=== PATIENT | female | born 1940 | race Caucasian/White ===

== ENCOUNTER 2022-11-07 16:54 | Inpatient (IN) ==
[2022-11-07 17:34] LABS: ABS Lymphocytes 0.5 10^3/uL (1.0-4.8); ABS Monocytes 1.2 10^3/uL (0.0-0.9); ABS Neutrophils 19.7 10^3/uL (1.5-7.6); Eosinophil % 0.2 %; Hematocrit 40.3 % (35-45); Hemoglobin 13.1 g/dL (11.5-14.3); Lymphocyte % 2.5 %; Mean Corpuscular Hemoglobin 27.7 pg (27-33); Mean Corpuscular Hgb Conc 32.5 g/dL (31-36); Mean Corpuscular Volume 85.3 fL (80-97); Platelet Count 200 10^3/uL (150-450); Red Blood Count 4.72 10^6/uL (3.63-4.92); Red Cell Distribution Width 14.4 % (12-17); White Blood Count 21.5 10^3/uL (3.8-11.8)
[2022-11-07 17:40] LABS: INR 3.85 (0.88-1.18)
[2022-11-07 17:51] LABS: Albumin 3.9 g/dL (3.2-5.2); Albumin/Globulin Ratio 1.3 (1-3); Calcium 9.2 mg/dL (8.6-10.3); Creatinine, Serum 1.16 mg/dL (0.51-0.95); Potassium 4.9 mmol/L (3.5-5.0); Total Bilirubin 0.9 mg/dL (0.2-1.0); Total Protein 6.9 g/dL (6.4-8.9); eGFR CKD-EPI 47.4 (>60)
[2022-11-07] MEDS ORDERED: cefTRIAXone 1 gm/50 mL D5W 1 GM/50 ML BAG IV ONE (18:33)
[2022-11-07] MEDS ORDERED: Azithromycin 500 mg/250 ml NS 500 MG/250 ML BAG IVPB ONE (18:33)
[2022-11-07] MEDS ORDERED: Dexamethasone IV 4 MG/ML VIAL 1 ml VIAL IV SLOW PU ONE (18:35)
[2022-11-07 19:08] LABS: Urine Appearance Cloudy; Urine Bilirubin Negative (Negative); Urine Blood 2+ (Negative); Urine Color Yellow; Urine Glucose Negative (Negative); Urine Ketones Negative (Negative); Urine Nitrite Negative (Negative); Urine Protein 1+(30 mg/dL) (Negative); Urine Specific Gravity 1.019 (1.002-1.030); Urine Urobilinogen Negative (Negative)
[2022-11-07 19:13] LABS: Urine Bacteria 1+ (Absent); Urine Red Blood Cell 3+(>10/hpf) (Absent); Urine Squamous Epithelial Cell Present (Absent); Urine White Blood Cell 3+(>20/hpf) (Absent)
[2022-11-07] MEDS: Albuterol/Ipratropium NEB.SOL (2.5/0.5 MG) 3 ML NEB.SOLN INH SCH ×3 (19:15→20:19)
[2022-11-07 19:24] LABS: High Sensitivity Troponin 1 Hr 7 pg/mL (<15)
[2022-11-07 19:42] LABS: TSH Ultra Thyroid Stim Horm 1.72 mcIU/mL (0.34-5.60)
[2022-11-07 19:46] LABS: Free T4 0.77 ng/dL (0.61-1.12)
[2022-11-07] MEDS ORDERED: Lactated Ringers 1000 ml BAG IV.FLUID IV ONE (20:41)
[2022-11-07] MEDS ORDERED: Albuterol HFA INHALER 8 gm MDI INH PRN (21:44)
[2022-11-07] MEDS ORDERED: Warfarin per PHARMACY **NOTE FOLLOW UP SCH (23:00)
[2022-11-08 00:12] VITALS: BP 126/54
[2022-11-08] MEDS ORDERED: Multivitamins/Minerals TAB PO SCH (09:00)
[2022-11-08] MEDS ORDERED: Cholecalciferol (VIT D3) 1,000 unit TAB PO SCH (09:00)
[2022-11-08] MEDS ORDERED: DULoxetine DR 20 mg CAP PO SCH (09:00)
== END 2022-11-08 00:13 | disposition short-term general hospital (02) | DRG 872 ==
LOC: ED 16:54 → EDHOLD 19:17
PROVIDERS: ADMIT Internal Medicine; ATTEND Internal Medicine